=== PATIENT | male | born 1960 | race Caucasian/White ===

== ENCOUNTER → 2021-01-01 13:33 | Outpatient (CLI) | payer MEDICARE, SELFPAY ==
[2021-01-01 13:53] LABS: Basophils % 0.4 % (0.1-2.0); Eosinophils % 0.6 % (0.1-12.0); Hematocrit 38.2 % (42.0-52.0); Hemoglobin 11.6 g/dL (14.1-18.0); Lymphocytes # 1.2 K/mm3 (0.7-4.5); Lymphocytes % 22.1 % (10-50); Mean Corpuscular HGB Conc 30.4 g/dL (31.8-35.4); Mean Corpuscular Hemoglobin 24.3 pg (27.0-31.2); Mean Corpuscular Volume 79.9 fl (80-94); Mean Platelet Volume 7.6 fl (7.4-10.4); Monocytes # 0.3 K/mm3 (0.1-1.0); Platelet Count 343 K/mm3 (142-424); Red Blood Count 4.78 M/mm3 (4.60-6.20); Red Cell Distribution Width 15.9 % (11.5-17.5); White Blood Count 5.6 K/mm3 (4.8-10.8)
[2021-01-01 14:07] LABS: Alanine Aminotransferase 12 U/L (12-78); Aspartate Amino Transferase 19 U/L (17-59); Bilirubin,Total 0.3 mg/dl (0.2-1.3); Blood Urea Nitrogen 13 mg/dl (9-20); Estimated Glomerular Filt Rate 138 ml/min (>60); GFR (African American) 167 ML/MIN (>60)
[2021-01-01 14:13] LABS: C-Reactive Protein 22.2 mg/L (0-4)
[2021-01-02 11:28] LABS: Alkaline Phosphatase 111 U/L (38-126); Creatine Kinase 22 U/L (55-170)
== END ==
PROVIDERS: Visit Provider Internal Medicine
DX: L02.211 Cutaneous abscess of abdominal wall (principal)
CPT/HCPCS: 82247; 82550; 82565; 84075; 84080; 84450; 84460; 84520; 85025; 86140

== ENCOUNTER → 2021-01-08 11:30 | Outpatient (CLI) | payer MEDICARE, SELFPAY ==
[2021-01-08 11:51] LABS: Basophils % 0.3 % (0.1-2.0); Eosinophils # 0.1 K/mm3 (0.0-0.4); Eosinophils % 0.9 % (0.1-12.0); Hematocrit 35.1 % (42.0-52.0); Hemoglobin 10.8 g/dL (14.1-18.0); Lymphocytes % 18.3 % (10-50); Mean Corpuscular HGB Conc 30.7 g/dL (31.8-35.4); Mean Corpuscular Hemoglobin 24.3 pg (27.0-31.2); Mean Corpuscular Volume 79.2 fl (80-94); Mean Platelet Volume 7.7 fl (7.4-10.4); Monocytes # 0.2 K/mm3 (0.1-1.0); Monocytes % 3.6 % (1.7-9.3); Neutrophils # 4.4 K/mm3 (1.8-7.8); Platelet Count 277 K/mm3 (142-424); Red Blood Count 4.43 M/mm3 (4.60-6.20); Red Cell Distribution Width 15.8 % (11.5-17.5); White Blood Count 5.7 K/mm3 (4.8-10.8)
[2021-01-08 12:26] LABS: Alanine Aminotransferase 8 U/L (12-78); Alkaline Phosphatase 114 U/L (38-126); Aspartate Amino Transferase 16 U/L (17-59); Bilirubin,Total 0.3 mg/dl (0.2-1.3); Blood Urea Nitrogen 9 mg/dl (9-20); Creatine Kinase 21 U/L (55-170); Estimated Glomerular Filt Rate 138 ml/min (>60); GFR (African American) 167 ML/MIN (>60); Phosphorous 3.8 mg/dl (2.5-4.5)
[2021-01-08 12:32] LABS: C-Reactive Protein 24.9 mg/L (0-4)
== END ==
PROVIDERS: Visit Provider Internal Medicine
DX: S31.109A Unspecified open wound of abdominal wall, unspecified quadrant without penetration into peritoneal cavity, initial encounter (principal)
CPT/HCPCS: 82247; 82550; 82565; 84075; 84100; 84450; 84460; 84520; 85025; 86140

== ENCOUNTER → 2021-01-15 12:25 | Outpatient (CLI) | payer MEDICARE, SELFPAY ==
[2021-01-15 12:58] LABS: Basophils % 0.4 % (0.1-2.0); Eosinophils # 0.1 K/mm3 (0.0-0.4); Eosinophils % 1.1 % (0.1-12.0); Hematocrit 41.2 % (42.0-52.0); Hemoglobin 12.6 g/dL (14.1-18.0); Lymphocytes # 1.9 K/mm3 (0.7-4.5); Mean Corpuscular HGB Conc 30.6 g/dL (31.8-35.4); Mean Corpuscular Hemoglobin 24.5 pg (27.0-31.2); Mean Platelet Volume 8.4 fl (7.4-10.4); Monocytes # 0.4 K/mm3 (0.1-1.0); Monocytes % 5.4 % (1.7-9.3); Neutrophils # 4.4 K/mm3 (1.8-7.8); Neutrophils % 65.1 % (37.0-80.0); Platelet Count 387 K/mm3 (142-424); Red Blood Count 5.14 M/mm3 (4.60-6.20); Red Cell Distribution Width 15.7 % (11.5-17.5); White Blood Count 6.8 K/mm3 (4.8-10.8)
[2021-01-15 13:16] LABS: Alanine Aminotransferase 12 U/L (12-78); Aspartate Amino Transferase 25 U/L (17-59); Blood Urea Nitrogen 12 mg/dl (9-20); Estimated Glomerular Filt Rate 138 ml/min (>60); GFR (African American) 167 ML/MIN (>60)
[2021-01-15 13:17] LABS: Alkaline Phosphatase 128 U/L (38-126); Bilirubin,Total 0.5 mg/dl (0.2-1.3); Creatine Kinase < 20 U/L (55-170); Phosphorous 4.1 mg/dl (2.5-4.5)
[2021-01-15 13:23] LABS: C-Reactive Protein 34.4 mg/L (0-4)
== END ==
PROVIDERS: Visit Provider Student in an Organized Health Care Education/Training Program
DX: K61.0 Anal abscess (principal)
CPT/HCPCS: 82247; 82550; 82565; 84075; 84100; 84450; 84460; 84520; 85025; 86140

== ENCOUNTER 2021-06-06 13:00 | Outpatient (RCR) | payer MEDICARE, SELFPAY | END 2021-06-06 14:00 | disposition home or self-care (01) | LOC: PT 13:00 | PROVIDERS: Visit Provider Plastic Surgery | DX: T81.30XA Disruption of wound, unspecified, initial encounter (principal) | CPT/HCPCS: 97163; 97597; 97598 ==

== ENCOUNTER 2021-07-17 10:15 | Outpatient (RCR) | payer MEDICARE, SELFPAY | END 2021-07-17 10:20 | disposition home or self-care (01) | LOC: PT 10:15 | PROVIDERS: Visit Provider Plastic Surgery | DX: T81.30XA Disruption of wound, unspecified, initial encounter (principal) | CPT/HCPCS: 97163 ==

== ENCOUNTER → 2021-08-31 15:20 | Outpatient (CLI) | payer MEDICARE, SELFPAY ==
[2021-08-31 15:26] LABS: Microscopic, Urine URINE MICROSCOPIC (MICROSCOPIC)
[2021-08-31 15:43] LABS: Appearance,Urine CLEAR (Clear); Bilirubin,Urine Negative (Negative); Blood, Urine 2+ (Negative); Color,Urine YELLOW (Yellow); Glucose,Urine (UA) Negative (Negative); Ketones,Urine Negative (Negative); Leukocyte Esterase,Urine 2+ (Negative); Nitrate,Urine POSITIVE (Negative); Protein,Urine 1+ (Negative); Specific Gravity, Urine 1.025 (1.005-1.030); Urobilinogen,Urine 0.2 EU/dl (0.2)
[2021-08-31 16:17] LABS: Bacteria,Urine 3+ /lpf; WBC,Urine TNTC #/hpf (0-3)
== END ==
PROVIDERS: Visit Provider Internal Medicine
DX: N39.0 Urinary tract infection, site not specified (principal); B96.20 Unspecified Escherichia coli [E. coli] as the cause of diseases classified elsewhere
CPT/HCPCS: 81001; 87086; 87186

== ENCOUNTER → 2021-09-14 13:44 | Outpatient (CLI) | payer MEDICARE, SELFPAY | PROVIDERS: Visit Provider Nurse Practitioner | DX: Z20.822 Contact with and (suspected) exposure to COVID-19 (principal) | CPT/HCPCS: C9803; U0003; U0005 ==

== ENCOUNTER → 2021-12-26 11:38 | Outpatient (CLI) | payer MEDICARE, SELFPAY ==
[2021-12-26 14:42] LABS: Basophils # 0.1 K/mm3 (0-0.2); Basophils % 1.1 % (0.1-2.0); Eosinophils # 0.5 K/mm3 (0.0-0.4); Eosinophils % 10.3 % (0.1-12.0); Hemoglobin 9.5 g/dL (14.1-18.0); Lymphocytes # 0.8 K/mm3 (0.7-4.5); Lymphocytes % 15.9 % (10-50); Mean Corpuscular HGB Conc 30.5 g/dL (31.8-35.4); Mean Corpuscular Hemoglobin 22.8 pg (27.0-31.2); Mean Corpuscular Volume 74.8 fl (80-94); Mean Platelet Volume 8.4 fl (7.4-10.4); Monocytes # 0.4 K/mm3 (0.1-1.0); Monocytes % 7.7 % (1.7-9.3); Neutrophils # 3.1 K/mm3 (1.8-7.8); Neutrophils % 65.1 % (37.0-80.0); Platelet Count 362 K/mm3 (142-424); Red Blood Count 4.15 M/mm3 (4.60-6.20); Red Cell Distribution Width 19.4 % (11.5-17.5); White Blood Count 4.8 K/mm3 (4.8-10.8)
[2021-12-26 14:47] LABS: Chloride 108 mmol/L (98-107)
[2021-12-26 14:48] LABS: Potassium 3.8 mmoL/L (3.5-5.1); Sodium 141 mmol/L (136-145)
[2021-12-26 14:50] LABS: Alanine Aminotransferase 11 U/L (12-78); Alkaline Phosphatase 101 U/L (38-126); Aspartate Amino Transferase 24 U/L (17-59); Bilirubin,Total 0.5 mg/dl (0.2-1.3); Blood Urea Nitrogen 11 mg/dl (9-20); Estimated Glomerular Filt Rate 137 ml/min (>60); GFR (African American) 166 ML/MIN (>60)
[2021-12-26 14:51] LABS: Albumin Level 3.5 g/dl (3.5-5.0); Albumin/Globulin Ratio 0.9 (1.1-1.8); Anion Gap 9.8 mEq/L (5-15); Calcium 7.8 mg/dl (8.4-10.2); Carbon Dioxide 27 mmol/L (22.0-30.0); Creatine Kinase 38 U/L (55-170); Globulin 3.7 g/dL (1.3-3.2); Glucose 80 mg/dl (74-100); Total Protein,Serum 7.2 g/dl (6.3-8.2)
== END ==
PROVIDERS: Visit Provider Plastic Surgery
DX: L89.314 Pressure ulcer of right buttock, stage 4 (principal)
CPT/HCPCS: 80053; 82550; 85025; 86140

== ENCOUNTER → 2022-01-02 12:02 | Outpatient (CLI) | payer MEDICARE, SELFPAY ==
[2022-01-02 14:40] LABS: Basophils % 0.7 % (0.1-2.0); Eosinophils # 0.8 K/mm3 (0.0-0.4); Eosinophils % 15.8 % (0.1-12.0); Hematocrit 30.6 % (42.0-52.0); Hemoglobin 9.3 g/dL (14.1-18.0); Mean Corpuscular HGB Conc 30.5 g/dL (31.8-35.4); Mean Corpuscular Hemoglobin 22.9 pg (27.0-31.2); Mean Corpuscular Volume 75.1 fl (80-94); Mean Platelet Volume 8.4 fl (7.4-10.4); Monocytes # 0.3 K/mm3 (0.1-1.0); Neutrophils # 2.8 K/mm3 (1.8-7.8); Neutrophils % 56.5 % (37.0-80.0); Platelet Count 298 K/mm3 (142-424); Red Blood Count 4.07 M/mm3 (4.60-6.20); Red Cell Distribution Width 19.2 % (11.5-17.5); White Blood Count 4.9 K/mm3 (4.8-10.8)
[2022-01-02 14:48] LABS: Alanine Aminotransferase 9 U/L (12-78); Albumin Level 3.5 g/dl (3.5-5.0); Albumin/Globulin Ratio 1.1 (1.1-1.8); Alkaline Phosphatase 91 U/L (38-126); Anion Gap 9.6 mEq/L (5-15); Aspartate Amino Transferase 21 U/L (17-59); Bilirubin,Direct 0.3 mg/dl (0.0-0.4); Bilirubin,Total 0.4 mg/dl (0.2-1.3); Blood Urea Nitrogen 11 mg/dl (9-20); Calcium 8.2 mg/dl (8.4-10.2); Carbon Dioxide 25 mmol/L (22.0-30.0); Chloride 109 mmol/L (98-107); Creatine Kinase 32 U/L (55-170); Estimated Glomerular Filt Rate 170 ml/min (>60); GFR (African American) 205 ML/MIN (>60); Globulin 3.2 g/dL (1.3-3.2); Glucose 64 mg/dl (74-100); Potassium 3.6 mmoL/L (3.5-5.1); Sodium 140 mmol/L (136-145); Total Protein,Serum 6.7 g/dl (6.3-8.2)
[2022-01-02 14:53] LABS: C-Reactive Protein 7.3 mg/L (0-4)
== END ==
PROVIDERS: PCP Plastic Surgery; Visit Provider Plastic Surgery
DX: L89.314 Pressure ulcer of right buttock, stage 4 (principal)
CPT/HCPCS: 80053; 82248; 82550; 85025; 86140

== ENCOUNTER → 2022-01-09 11:55 | Outpatient (CLI) | payer MEDICARE, SELFPAY ==
[2022-01-09 13:47] LABS: Alanine Aminotransferase 9 U/L (12-78); Albumin Level 3.6 g/dl (3.5-5.0); Albumin/Globulin Ratio 1.1 (1.1-1.8); Alkaline Phosphatase 112 U/L (38-126); Aspartate Amino Transferase 21 U/L (17-59); Bilirubin,Direct 0.3 mg/dl (0.0-0.4); Bilirubin,Indirect 0.1 mg/dL (0.0-0.9); Bilirubin,Total 0.4 mg/dl (0.2-1.3); Blood Urea Nitrogen 12 mg/dl (9-20); Calcium 8.1 mg/dl (8.4-10.2); Carbon Dioxide 26 mmol/L (22.0-30.0); Chloride 109 mmol/L (98-107); Creatine Kinase 40 U/L (55-170); Estimated Glomerular Filt Rate 137 ml/min (>60); GFR (African American) 166 ML/MIN (>60); Globulin 3.2 g/dL (1.3-3.2); Glucose 86 mg/dl (74-100); Sodium 139 mmol/L (136-145); Total Protein,Serum 6.8 g/dl (6.3-8.2)
[2022-01-09 13:53] LABS: C-Reactive Protein 13.6 mg/L (0-4)
[2022-01-09 14:01] LABS: Basophils % 0.9 % (0.1-2.0); Eosinophils # 0.2 K/mm3 (0.0-0.4); Eosinophils % 5.1 % (0.1-12.0); Hematocrit 30.2 % (42.0-52.0); Hemoglobin 9.3 g/dL (14.1-18.0); Lymphocytes # 0.9 K/mm3 (0.7-4.5); Lymphocytes % 18.3 % (10-50); Mean Corpuscular HGB Conc 30.7 g/dL (31.8-35.4); Mean Corpuscular Hemoglobin 23.2 pg (27.0-31.2); Mean Corpuscular Volume 75.4 fl (80-94); Mean Platelet Volume 8.9 fl (7.4-10.4); Monocytes # 0.3 K/mm3 (0.1-1.0); Monocytes % 5.6 % (1.7-9.3); Neutrophils # 3.3 K/mm3 (1.8-7.8); Neutrophils % 70.1 % (37.0-80.0); Platelet Count 278 K/mm3 (142-424); Red Blood Count 4.01 M/mm3 (4.60-6.20); Red Cell Distribution Width 19.1 % (11.5-17.5); White Blood Count 4.8 K/mm3 (4.8-10.8)
== END ==
PROVIDERS: Surgery Plastic and Reconstructive Surgery; Visit Provider Plastic Surgery
DX: L89.314 Pressure ulcer of right buttock, stage 4 (principal); Z48.01 Encounter for change or removal of surgical wound dressing; B20 Human immunodeficiency virus [HIV] disease; C46.9 Kaposi's sarcoma, unspecified; N39.0 Urinary tract infection, site not specified; N40.1 Benign prostatic hyperplasia with lower urinary tract symptoms; I10 Essential (primary) hypertension; K21.9 Gastro-esophageal reflux disease without esophagitis; K56.699 Other intestinal obstruction unspecified as to partial versus complete obstruction; Z16.12 Extended spectrum beta lactamase (ESBL) resistance; Z93.3 Colostomy status; Z87.891 Personal history of nicotine dependence
CPT/HCPCS: 80053; 82248; 82550; 85025; 86140

== ENCOUNTER → 2022-01-23 11:31 | Outpatient (CLI) | payer MEDICARE, SELFPAY ==
[2022-01-23 11:47] LABS: Chloride 109 mmol/L (98-107)
[2022-01-23 11:48] LABS: Potassium 3.8 mmoL/L (3.5-5.1); Sodium 142 mmol/L (136-145)
[2022-01-23 11:50] LABS: Alanine Aminotransferase 10 U/L (12-78); Aspartate Amino Transferase 21 U/L (17-59); Blood Urea Nitrogen 11 mg/dl (9-20); Estimated Glomerular Filt Rate 115 ml/min (>60); GFR (African American) 139 ML/MIN (>60)
[2022-01-23 11:51] LABS: Albumin Level 3.9 g/dl (3.5-5.0); Albumin/Globulin Ratio 1.1 (1.1-1.8); Alkaline Phosphatase 134 U/L (38-126); Anion Gap 8.8 mEq/L (5-15); Bilirubin,Direct 0.3 mg/dl (0.0-0.4); Bilirubin,Indirect 0.2 mg/dL (0.0-0.9); Bilirubin,Total 0.5 mg/dl (0.2-1.3); Calcium 8.3 mg/dl (8.4-10.2); Carbon Dioxide 28 mmol/L (22.0-30.0); Creatine Kinase 54 U/L (55-170); Globulin 3.4 g/dL (1.3-3.2); Glucose 61 mg/dl (74-100); Total Protein,Serum 7.3 g/dl (6.3-8.2)
[2022-01-23 11:56] LABS: C-Reactive Protein 21.7 mg/L (0-4)
[2022-01-23 12:02] LABS: Basophils % 0.8 % (0.1-2.0); Eosinophils # 0.1 K/mm3 (0.0-0.4); Eosinophils % 1.2 % (0.1-12.0); Hemoglobin 10.1 g/dL (14.1-18.0); Mean Corpuscular HGB Conc 30.6 g/dL (31.8-35.4); Mean Corpuscular Hemoglobin 23.4 pg (27.0-31.2); Mean Corpuscular Volume 76.3 fl (80-94); Mean Platelet Volume 8.6 fl (7.4-10.4); Monocytes # 0.3 K/mm3 (0.1-1.0); Monocytes % 6.2 % (1.7-9.3); Neutrophils % 69.7 % (37.0-80.0); Platelet Count 295 K/mm3 (142-424); Red Blood Count 4.33 M/mm3 (4.60-6.20); White Blood Count 4.4 K/mm3 (4.8-10.8)
== END ==
PROVIDERS: Visit Provider Surgery Plastic and Reconstructive Surgery
DX: L89.314 Pressure ulcer of right buttock, stage 4 (principal); Z48.01 Encounter for change or removal of surgical wound dressing
CPT/HCPCS: 80053; 82248; 82550; 85025; 86140

== ENCOUNTER 2022-04-03 10:00 | Outpatient (RCR) | payer MEDICARE, SELFPAY | END 2022-04-03 10:05 | disposition home or self-care (01) | LOC: PT 10:00 | PROVIDERS: PCP Plastic Surgery; Visit Provider Surgery Plastic and Reconstructive Surgery | DX: L89.324 Pressure ulcer of left buttock, stage 4 (principal) | CPT/HCPCS: 97163; 97164; 97597; 97598 ==

== ENCOUNTER 2022-11-27 11:00 | Outpatient (RCR) | payer MEDICARE, SELFPAY | END 2022-11-27 11:05 | disposition home or self-care (01) | LOC: PT 11:00 | PROVIDERS: PCP Plastic Surgery; Visit Provider Physical Medicine & Rehabilitation | DX: M25.551 Pain in right hip (principal); M86.68 Other chronic osteomyelitis, other site; M16.7 Other unilateral secondary osteoarthritis of hip | CPT/HCPCS: 97010; 97110; 97163; 97530 ==

== ENCOUNTER 2024-12-03 11:00 | Outpatient (RCR) | payer MEDICARE, SELFPAY | END 2024-12-03 23:59 | disposition home or self-care (01) | LOC: PT 11:00 | PROVIDERS: PCP Plastic Surgery; Visit Provider Internal Medicine | DX: R53.1 Weakness (principal); Z91.81 History of falling | CPT/HCPCS: 97110; 97163; 97530 ==

== ENCOUNTER 2024-12-07 19:05 | Outpatient (CLI) | payer MEDICARE, SELFPAY | END 2024-12-07 23:59 | disposition home or self-care (01) | LOC: LAB.DROPOF 19:05 | PROVIDERS: PCP Nurse Practitioner; Visit Provider Nurse Practitioner | DX: B35.1 Tinea unguium (principal) | CPT/HCPCS: 87102; 87206; 87220 ==

== ENCOUNTER 2025-01-04 14:00 | Outpatient (RCR) | payer MEDICARE, SELFPAY | END 2025-01-04 23:59 | disposition home or self-care (01) | LOC: PT 14:00 | PROVIDERS: PCP Plastic Surgery; Visit Provider Internal Medicine | DX: Z91.81 History of falling (principal) | CPT/HCPCS: 97110; 97116; 97164; 97530 ==

== ENCOUNTER 2025-01-21 08:54 | Emergency (ER) | payer MEDICARE, SELFPAY ==
[2025-01-21 08:55] VITALS: PULSE 0; RESP 0; O2SAT 0; BMI 21.2
--- NOTE | 2025-01-21 09:12 | PC.NURSE ---
0855- Patient arrived via EMS with autopulse in operation, no definitive airway, ambu-bag providing breaths. Pt was a witnessed arrest at home with an estimated downtime of 20 min by the time of arrival to this facility per EMS. EMS reported 2mg of Epi given in route, as well as refractory vfib with [address] shocks delivered[address] IO in place per EMS to left tibia 0856- 1mg Epi given IO 0856- POC glucose 168 0857- Compressions paused. Vifb on monitor. No pulse. Shock delivered at 200j. Compressions resumed. 0859- 2gm Mag Sulfate given IO. 300mg Amio given IO. 1mg Epi given IO. 0900- Compressions paused. No pulse. Asystole on monitor. Compressions resumed. 0902- Compressions paused. No Pulse. Asystole on monitor. Compressions resumed. 0902- 1mg Epi given IO. 0904- TOD called by MD Reny
--- NOTE | 2025-01-21 09:28 | HMH.EDGENADL ---
Discharge Plan Disposition Patient Disposition: Prescriptions Prescriptions: No Action potassium chloride 20 mEq tablet,ER particles/crystals PO linezolid 600 mg tablet PO ONCE doxycycline hyclate 100 mg capsule PO DAILY tamsulosin 0.4 mg capsule PO hydrocodone-acetaminophen 5-325 mg tablet PO DAILY lidocaine 5 % ointment 1 applic topical DAILY Biktarvy 50-200-25 mg tablet PO sulfamethoxazole-trimethoprim 800-160 mg tablet PO DAILY Clinical Impressions Clinical Impression: Cardiac arrest, History of colorectal cancer Print Language Print Language: Serbian Discharge ED Provider: Louis Oglesby General Adult HPI General Stated complaint: Code 500 Time Seen by Provider: 01/21/25 09:08 History of Present Illness HPI narrative: Patient is a 64-year-old male past medical history of colorectal cancer that presents to the emergency department in cardiac arrest. History is solely obtained by EMS. Patient was in the kitchen when he collapsed to the ground, short amount of downtime initial rhythm was asystole patient underwent ACLS prior to arrival, patient had intermittent truculent fibrillation which was defibrillated. Total defibrillations for prior to arrival total epi 2 prior to arrival. No IV access was obtained so they placed a tibial IO on the left. No airway placed and patient was [id number] prior to arrival. No other history is able to be obtained at this time. Related Data Home Medications ?Medication ?Instructions ?Recorded ?Confirmed bictegravir 50 mg-emtricitabine tab PO 12/07/24 12/07/24 200 mg-tenofovir alafenam 25 mg tablet (Biktarvy) doxycycline hyclate 100 mg capsule mg PO DAILY 12/07/24 12/07/24 hydrocodone 5 mg-acetaminophen 325 tab PO DAILY 12/07/24 12/07/24 mg tablet lidocaine 5 % topical ointment 1 applic topical DAILY 12/07/24 12/07/24 linezolid 600 mg tablet mg PO ONCE 12/07/24 12/07/24 potassium chloride 20 mEq meq PO 12/07/24 12/07/24 tablet,extended release(part/cryst) sulfamethoxazole 800 tab PO DAILY 12/07/24 12/07/24 mg-trimethoprim 160 mg tablet tamsulosin 0.4 mg capsule mg PO 12/07/24 12/07/24 Allergies Allergy/AdvReac Type Severity Reaction Status Date / Time cephalexin (From Keflex) AdvReac Mild Hives Verified 12/07/24 10:28 metronidazole (From Flagyl) AdvReac Mild Hives Verified 12/07/24 10:28 Penicillins AdvReac Unknown Verified 12/07/24 10:28 PFSH [facility] Disclaimer: The information contained in this section may have been updated after the patient was seen, as this information can be updated by other users. Social History (Updated 12/10/24 @ 14:52 by Estelle Fine APRN) Smoking Status: Never smoker alcohol intake: never current occupational status: retired Travel in the last 8 weeks: None ROS Obtained: Yes other (Cannot obtain) Physical Exam General General appearance: other (Nasopharyngeal airway in place, left tibial IO in place, [id number]) Respiratory Respiratory exam: Present other (Bagged respirations) Cardiovascular Cardiovascular exam: Present other (No palpable bilateral radial pulses) Neurological Exam Neurological exam: Present other (GCS 3) Medical Decision Making Medical Records Screening: Per USPSTF and CDC recommendations, given the prevalence of disease in our region, it is our hospital?s policy to screen for HIV and viral Hepatitis for all patients aged 18 and over and those with ongoing risk factors. Gigi Inquiry Pt receiving controlled substance: No Medical Decision Narrative: In summary patient is a 64-year-old male with past medical history described above who presents emergency department in cardiac arrest. Patient is in cardiac arrest upon arrival. Unknown resuscitation status, family is en route. LMA placed. Placed underwent ACLS with multiple rounds of CPR with auto pulse, patient rhythms were asystole and ventricular fibrillation. V-fib was appropriately defibrillated, in totality patient got multiple rounds of epinephrine, magnesium sulfate, amiodarone. Spouse arrived and it is not consistent with patient's wishes to continue ACLS and resuscitation efforts were terminated. After resuscitation was terminated patient remained in asystolic arrest. [id number] ultrasound cardiac standstill. Patient at 9:04 AM. Critical Care Critical Care Time Critical Care Time: Yes Attestation: On , the high probability of a clinically significant, sudden or life threatening deterioration of the following system(s) required my full and direct attention, intervention and personal management. The time I documented below is in addition to time spent performing reported procedures but includes the following listed in this critical care notation. Total Time Total Critical Care Time: 9
--- NOTE | 2025-01-21 09:32 | PC.NURSE ---
pt has been cleared by the bench assembler electrical.
--- NOTE | 2025-01-21 09:34 | PC.NURSE ---
I called and spoke with Janice Montesinos at [facility]. . Janice states she will call back with an update. I also informed her that this will not be a temperature logging operator case.
--- NOTE | 2025-01-21 09:35 | EXP.DEATH.NO ---
Pronouncement Note Date and Time of Date of : 01/21/25 Time of : 09:04 PCOD Preliminary cause of : Cardiac arrest due to other underlying condition Contributing Factors (1) Colorectal cancer: Summary Additional details: Patient is a 64-year-old male with past medical history of colorectal cancer presented to the emergency department in cardiac arrest. Patient had intermittent episodes of ventricular fibrillation which were defibrillated, most of his rhythm checks were asystolic arrest. Patient underwent ACLS and shared decision making discussion was had with spouse upon arrival who wishes to terminate resuscitative efforts. Patient remained in asystole and at 0904. Additional Data Confirmation of : no pulse Family: contacted Additional persons at bedside: other Attending/PCP notified?: No Was code activated?: Yes Autopsy should be considered if:: Unknown or unanticipated medical complications Cause is not known with certainty on clinical grounds Would allay concerns of the public/family regarding Unexplained/unexpected apparently natural and not subject to a forensic medical jurisdiction DOA Within 24 hours of admission Sustained or apparently sustained injury while in the hospital Result of high risk, infectious and contagious disease Obstetric and pediatric arising from environmental or occupational hazard Unexplained/unexpected from dental, medical, or surgical diagnostic procedures and/or therapies Would disclose a known or suspected illness which also may have a bearing on survivors or recipients of transplanted organs Autopsy requested?: No Does not meet criteria compliance examiner notified?: Yes Organ bank notified?: Yes Advance directives: No
[2025-01-21 09:37] VITALS: BMI 22.0
--- NOTE | 2025-01-21 09:39 | PC.NURSE ---
materials called and notified of code blue. height and wieght for pt were not in chart, TRN was unable to complete orders. attempted to put in correct order, materials aware of restock needed.
--- NOTE | 2025-01-21 10:13 | PC.NURSE ---
Janice called back from [facility]. She states she is going to attempt to reach out to the pts . Then will give me a call back.
--- NOTE | 2025-01-21 10:40 | PC.NURSE ---
Janice from [facility] called and states that she spoke with the pts and that he is released from [facility].
--- NOTE | 2025-01-21 10:42 | PC.WOUNDNOTE ---
The prototype sewer was notified that the pt has been released from [facility] and the home can be notified.
--- NOTE | 2025-01-21 10:45 | PC.NURSE ---
notified Domenica Torsten that was home can be called at this time to come shredder picker pt body
== END 2025-01-21 12:50 | disposition expired ==
LOC: ER 12:42
PROVIDERS: Emergency Provider Emergency Medicine
DX: I46.9 Cardiac arrest, cause unspecified (principal)
CPT/HCPCS: 92950; 99285; J0171; J0282